=== PATIENT | female | born 1980 | race Caucasian/White ===

== ENCOUNTER → 2020-01-04 09:04 | Outpatient (BNVA) | payer BC, MEDICAID, SELFPAY | PROVIDERS: Family Provider Nurse Practitioner Family; PCP Family Medicine; Visit Provider Family Medicine | DX: E55.9 Vitamin D deficiency, unspecified (principal); I10 Essential (primary) hypertension; E03.9 Hypothyroidism, unspecified; J45.909 Unspecified asthma, uncomplicated; F32.9 Major depressive disorder, single episode, unspecified; F41.9 Anxiety disorder, unspecified; M43.06 Spondylolysis, lumbar region; G89.29 Other chronic pain; M25.551 Pain in right hip; Z79.899 Other long term (current) drug therapy | CPT/HCPCS: 80053; 80061; 82044; 82306; 84443; 85025 ==

== ENCOUNTER 2020-01-06 16:10 | Outpatient (CLI) | payer BC, MEDICAID, SELFPAY ==
--- NOTE | 2020-01-06 16:15 | XR_ITS ---
WS: [id number] HIP WITH PELVIS RIGHT TECHNIQUE: 3 views of the right hip with pelvis CLINICAL INFORMATION: chronic right hip pain COMPARISON: None. FINDINGS: Right hip is normal in appearance. No acute fractures. Normal visualized right pubic rami. XR/XR hip RT 2-3V wo/w pel* [id number] IMPRESSION: Normal right hip
== END 2020-01-06 16:11 | disposition home or self-care (01) ==
LOC: RADWPI 16:14
PROVIDERS: Family Provider Family Medicine; PCP Family Medicine; Visit Provider Family Medicine
DX: M25.551 Pain in right hip (principal); G89.29 Other chronic pain
CPT/HCPCS: 73502

== ENCOUNTER → 2020-01-10 13:39 | Outpatient (BNVA) | payer BC, MEDICAID, SELFPAY | PROVIDERS: Family Provider Family Medicine; PCP Family Medicine; Visit Provider Nurse Practitioner Family | DX: J01.40 Acute pansinusitis, unspecified (principal) | CPT/HCPCS: 87071; 87880 ==

== ENCOUNTER 2020-01-30 09:41 | Outpatient (RCR) | payer BC, MEDICAID, SELFPAY | END 2020-02-27 23:59 | disposition home or self-care (01) | LOC: SPT 09:41 | PROVIDERS: PCP Family Medicine; Referring Provider Family Medicine; Visit Provider Family Medicine | DX: G89.29 Other chronic pain (principal); M25.551 Pain in right hip | CPT/HCPCS: 97110; 97112; 97161; 97530 ==

== ENCOUNTER 2020-02-06 15:46 | Outpatient (CLI) | payer BC, MEDICAID, SELFPAY ==
--- NOTE | 2020-02-06 15:57 | XR_ITS ---
WS: [id number] LUMBAR SPINE: 3 VIEWS TECHNIQUE: AP, lateral and L5-S1 spot. HISTORY: chronic low back pain COMPARISON: 08/03/2013 L5 anterolisthesis by 1.5 cm has progressed since 2013. Severe disc space narrowing with facet joint arthritis. Anterior L5 vertebral body extends inferior to the superior endplate of S1. Bilateral pars defects. The remaining disc spaces are normal. SI joints are symmetric bilaterally. No soft tissue abnormalities. XR/XR lumbar spine 2-3V* [id number] IMPRESSION: Grade 2 spondylolisthesis of L5 and bilateral pars defects. Severe degenerative disc disease at L5-S1 with progression since 08/03/2013.
== END 2020-02-06 15:47 | disposition home or self-care (01) ==
LOC: RADWPI 15:49
PROVIDERS: PCP Family Medicine; Visit Provider Family Medicine
DX: M54.5 Low back pain (principal); G89.29 Other chronic pain; M43.16 Spondylolisthesis, lumbar region; M51.37 Other intervertebral disc degeneration, lumbosacral region
CPT/HCPCS: 72100

== ENCOUNTER 2020-02-14 11:28 | Outpatient (CLI) | payer BC, MEDICAID, SELFPAY ==
--- NOTE | 2020-02-14 11:00 | MR_ITS ---
WS: [id number] MRI LUMBAR SPINE NONCONTRAST HISTORY: M43.06 Spondylolysis, lumbar region COMPARISON: 04/21/2017 TECHNIQUE: Sagittal and axial multisequence imaging is submitted. Grade 2 spondylolisthesis of L5 with severe disc space narrowing at L5-S1. Anterolisthesis is 11 mm w ith mild progression since the prior study. Severe degenerative disc space narrowing with sclerosis a t the L5-S1 disc level. Otherwise the alignment is normal. No fractures. Remaining disc spaces are well preserved. Conus terminates normally at L1-2 disc level. L1-L2: Normal. L2-L3: Normal. L3-L4: Small amount of fluid in the facet joints with no stenosis. L4-L5: Small amount of fluid in the facet joints and mild facet and ligamentum flavum hypertrophy. No significant stenosis. L5-S1: Unroofing of the L5-S1 disc due to the anterolisthesis of L5. Annular disc bulging and facet a rthritis. There is mild encroachment upon the ventral thecal sac. Additional facet joint arthritis an d ligamentum flavum hypertrophy. Severe bilateral foraminal stenosis and mild central and subarticula r recess stenosis. Mild progression of degenerative changes at L5-S1. MR/MR lumbar spine wo con* [id number] IMPRESSION: 1. Grade 2 spondylolisthesis of L5 with spondylolysis. Moderate progression of degenerative changes at L5-S1 and anterolisthesis since 2017. 2. Severe bilateral foraminal stenosis at L5-S1 with mild central and subartic ular recess stenosis.
== END 2020-02-14 11:29 | disposition home or self-care (01) ==
LOC: RADSHAW 11:31
PROVIDERS: PCP Family Medicine; Visit Provider Family Medicine
DX: M43.06 Spondylolysis, lumbar region (principal); M48.07 Spinal stenosis, lumbosacral region
CPT/HCPCS: 72148

== ENCOUNTER → 2020-02-22 16:11 | Outpatient (BNVA) | payer BC, MEDICAID, SELFPAY | PROVIDERS: PCP Family Medicine; Visit Provider Internal Medicine | DX: E11.9 Type 2 diabetes mellitus without complications (principal); K52.9 Noninfective gastroenteritis and colitis, unspecified | CPT/HCPCS: 80053; 82607; 82746; 82784; 83516; 83550; 84443; 85025 ==

== ENCOUNTER 2020-02-28 06:00 | Outpatient (RCR) | payer BC, MEDICAID, SELFPAY | END 2020-03-28 23:59 | disposition home or self-care (01) | LOC: SPT 06:00 | PROVIDERS: PCP Family Medicine; Referring Provider Family Medicine; Visit Provider Family Medicine | DX: M25.551 Pain in right hip (principal); G89.29 Other chronic pain | CPT/HCPCS: 97110 ==

== ENCOUNTER → 2020-03-09 11:53 | Outpatient (BNVA) | payer BC, MEDICAID, SELFPAY | PROVIDERS: PCP Family Medicine; Visit Provider Internal Medicine | DX: Z11.59 Encounter for screening for other viral diseases (principal) | CPT/HCPCS: 87635 ==

== ENCOUNTER 2020-03-12 08:08 | Day surgery (SDC) | payer BC, MEDICAID, SELFPAY ==
[2020-03-08 11:49] VITALS: BMI 34.2
[2020-03-12 08:20] VITALS: BP 101/81; PULSE 93; RESP 18; TEMP 36.1; O2SAT 98
[2020-03-12] MEDS: sodium chloride 0.9% 1,000 ML 30 ML IV (08:46)
--- NOTE | 2020-03-12 09:13 | ANES.PREANE2 ---
Pre-Anesthetic Assessment Pre-Anesthetic Assessment: Height/Weight: Height 1.6 m Weight 87.543 kg Temp Pulse Resp BP Pulse Ox 96.9 F L 93 18 101/81 98 03/12/20 08:20 03/12/20 08:20 03/12/20 08:20 03/12/20 08:20 03/12/20 08:20 Preop Diagnosis: abd pain Proposed Procedure: Operation Date: 03/12/20 09:00 Proposed Procedures p EGD/colon [id number] K52.9(Not Applicable) - Paul Montalvo MD s Colonoscopy(Not Applicable) - Paul Montalvo MD Familial anesthetic complications: none Was Beta Rick taken within 24 hours: N/A Last intake: Intake Last Liquid Date 03/11/20 Last Liquid Time 19:30 Last Solid Date 03/10/20 Last Solid Time 18:00 Last Intake: 19:30 Social: Social History: Tobacco (vap) Exam: Pre-Anes Outpt Exam: alert, oriented x 3, clear to auscultation bilaterally and regular rate & rhythm Airway: Submandibular: WNL Cervical ROM: WNL MP: 1 Dentition: Full Pulmonary: Pulmonary: Asthma CV/HEM: CV/HEM: DVT (2006 RLE) and HTN : : None reported Hepatic: Hepatic: None reported GI: GI: GERD Metabolic: Metabolic: Thyroid Musc/skel: Musc/skel: Lower Back Pain Neuropsych: Neuropsych: Anxiety, Depression and Syncope (last week. ABD pain causes syncope) Anesthetic Plan: ASA status: 2 Anesthesia: MAC Risk of > 500 ml blood loss (7ml/kg in children): No Meds/Allergies Current Medications: Current Medications Generic Name Dose Route Start Last Admin Trade Name Freq PRN Reason Stop Dose Admin Sodium Chloride 1,000 mls @ 30 ml s/hr 03/12/20 08:30 03/12/20 08:46 Sodium Chloride 0.9% IV 03/13/20 08:29 30 mls/hr .Q24H NAJMA Administration PFSH Anesthesia PFSH: Medical History Anxiety and depression On and off since her mid 20s. Currently on medication managed by PMD. Asthma Diagnosed as a child-symptoms are controlled with as needed inhaler use. Follows with her PMD Diet-controlled diabetes mellitus Diagnosed in 2013 and was on metformin in the past. Currently diet controlled Dyslipidemia On simvastatin managed by PMD Essential hypertension Diagnosed in 2013 and is controlled on medications managed by PMD Fibromyalgia GERD (gastroesophageal reflux disease) Hypothyroidism Since her 30s well-controlled with medication. Follows up with PMD IBS (irritable bowel syndrome) Has had symptoms on and off since her 20s and is currently on medication managed by Dr. Montalvo Lumbar spondylolysis Chronic back pain and nerve problems and takes gabapentin and pain medicine for this. No pertinent past medical history Denies DVT/PE PMD: Dr. Duffy Seizures Currently on Keppra for this. Surgical History H/O section 1998, 2004 H/O: hysterectomy TLH, bilateral salpingectomy, and suburetheral sling by Dr. Souza at [facility] [place] on 12/23/2018. Pathology showed benign cervix endometrium and myometrium with fibroid and adenomyosis. Bilateral tubes were benign History of bladder surgery -----> on 05/31/2008 patient underwent cystoscopy with bladder biopsy and hydrodistention of the bladder to identify the cause of pain and chronic UTI symptomatology. Bladder biopsy was negative. States that she had some sort of bladder surgery in 2007 done vaginally. Patient does not remember any details of surgery--- these records have been requested and obtained and details as noted above. History of cholecystectomy 1998--laparoscopic procedure History of nasal surgery 2007--cyst removed from nose S/P tubal ligation Performed in 2004 at time of second Status post sclerotherapy of varicose veins 2005--had procedure done to repair varicose veins in her left leg Family History (Updated 02/28/20 @ 09:23 by Stephanie Nichols RN) Father Hyperlipidemia Hypertension Heart disease Grandmother Hyperlipidemia paternal Hypertension paternal Stroke paternal Family/Other Hyperlipidemia paternal uncle Hypertension paternal uncle Hemophilia paternal uncle Mother Thyroid condition Denies family history of Colon cancer Ovarian cancer Diabetes Breast cancer Anesthesia complication Uterine cancer Social History (Updated 02/22/20 @ 15:17 by DEAN Delgado) Smoking and tobacco status: never smoked Alcohol intake: never History of recent travel: No Data Anesthesia Cardiac Studies: No Data to Display
--- NOTE | 2020-03-12 09:24 | W.PM.OPSUD ---
Surgery/Procedure H&P Update DATE OF PROCEDURE: March 12, 2020 DATE H&P PERFORMED: 02/22/20 PREOP DIAGNOSIS: abd pain PLANNED PROCEDURE: Operation Date: 03/12/20 09:00 Proposed Procedures p EGD/colon [id number] K52.9(Not Applicable) - Paul Montalvo MD s Colonoscopy(Not Applicable) - Paul Montalvo MD
[2020-03-12 09:52] VITALS: BP 104/76; PULSE 79; RESP 16; TEMP 36.1; O2SAT 97
--- NOTE | 2020-03-12 09:57 | ANE.PACU2 ---
Inpatient post-anesthesia follow up: Airway intact: Yes Vital signs: Temperature 96.9 F Pulse Rate 93 Respiratory Rate 18 Blood Pressure 101/81 Pulse Oximetry 98 Oxygen Delivery Me thod Room Air Oxygen Flow Rate Fraction of Inspir ed Oxygen Hydration adequate: Yes Nausea and vomiting: No Pain level: 1 Mental status: Baseline
[2020-03-12 10:18] VITALS: BP 111/81; PULSE 85; RESP 16; O2SAT 96
== END 2020-03-12 10:30 | disposition home or self-care (01) ==
PROVIDERS: PCP Family Medicine; Visit Provider Internal Medicine
PROC: 0DJ08ZZ Inspection of Upper Intestinal Tract, Via Natural or Artificial Opening Endoscopic (ICD-10-PCS; CPT 43235; principal; 2020-03-12 09:00)
PROC: 0DJD8ZZ Inspection of Lower Intestinal Tract, Via Natural or Artificial Opening Endoscopic (ICD-10-PCS; CPT 45378; 2020-03-12 09:00)
DX: K52.9 Noninfective gastroenteritis and colitis, unspecified (principal); K29.50 Unspecified chronic gastritis without bleeding; K44.9 Diaphragmatic hernia without obstruction or gangrene; J45.909 Unspecified asthma, uncomplicated; I10 Essential (primary) hypertension; K21.9 Gastro-esophageal reflux disease without esophagitis; E78.5 Hyperlipidemia, unspecified; E03.9 Hypothyroidism, unspecified; F17.210 Nicotine dependence, cigarettes, uncomplicated
CPT/HCPCS: 12345; 43235; 45378; 82274; 83630; 87493; 87506; 88305; J2704; J7030

== ENCOUNTER → 2020-04-04 07:53 | Outpatient (BNVA) | payer BC, MEDICAID, SELFPAY | PROVIDERS: PCP Family Medicine; Referring Provider Nurse Practitioner Family; Visit Provider Specialist | DX: F32.9 Major depressive disorder, single episode, unspecified (principal); F41.9 Anxiety disorder, unspecified; G40.909 Epilepsy, unspecified, not intractable, without status epilepticus; G43.711 Chronic migraine without aura, intractable, with status migrainosus; M43.06 Spondylolysis, lumbar region | CPT/HCPCS: 99204 ==

== ENCOUNTER → 2020-04-26 13:33 | Outpatient (BNVA) | payer BC, MEDICAID, SELFPAY | PROVIDERS: PCP Family Medicine; Referring Provider Family Medicine; Visit Provider Anesthesiology Pain Medicine | DX: R10.9 Unspecified abdominal pain (principal); M54.9 Dorsalgia, unspecified; M47.816 Spondylosis without myelopathy or radiculopathy, lumbar region; M51.16 Intervertebral disc disorders with radiculopathy, lumbar region; M43.06 Spondylolysis, lumbar region; F17.290 Nicotine dependence, other tobacco product, uncomplicated | CPT/HCPCS: 99205 ==

== ENCOUNTER → 2020-05-01 14:53 | Outpatient (BNVA) | payer BC, MEDICAID, SELFPAY | PROVIDERS: PCP Family Medicine; Visit Provider Anesthesiology Pain Medicine | DX: M51.16 Intervertebral disc disorders with radiculopathy, lumbar region (principal); M54.9 Dorsalgia, unspecified; F17.290 Nicotine dependence, other tobacco product, uncomplicated | CPT/HCPCS: 62323; 77003; J1040; J3490 ==

== ENCOUNTER → 2020-05-15 14:48 | Outpatient (BNVA) | payer BC, MEDICAID, SELFPAY | PROVIDERS: PCP Family Medicine; Visit Provider Anesthesiology Pain Medicine | DX: M51.16 Intervertebral disc disorders with radiculopathy, lumbar region (principal); M54.9 Dorsalgia, unspecified | CPT/HCPCS: 62323; J1040; J3490 ==

== ENCOUNTER → 2020-06-04 15:06 | Outpatient (BNVA) | payer BC, MEDICAID, SELFPAY | PROVIDERS: PCP Family Medicine; Visit Provider Family Medicine | DX: R30.0 Dysuria (principal) | CPT/HCPCS: 81000; 87086 ==

== ENCOUNTER → 2020-06-20 09:58 | Outpatient (BNVA) | payer BC, MEDICAID, SELFPAY | PROVIDERS: PCP Family Medicine; Visit Provider Specialist | DX: R56.9 Unspecified convulsions (principal); F17.200 Nicotine dependence, unspecified, uncomplicated | CPT/HCPCS: 95816 ==

== ENCOUNTER 2020-07-16 13:38 | Outpatient (CLI) | payer BC, MEDICAID, SELFPAY ==
--- NOTE | 2020-07-16 14:00 | MM_ITS ---
WS: [id number] BILATERAL SCREENING DIGITAL MAMMOGRAM WITH CAD HISTORY: screening COMPARISON: 02/18/2019 Bilateral CC and MLO views submitted. Computer aided detection analyzed. Breast composition: There are scattered areas of fibroglandular density. No suspicious masses, microc alcifications or architectural distortion. Benign calcifications and asymmetries. No suspicious mass. MM/[place] [id number] IMPRESSION: BI-RADS: 2-Benign FOLLOW UP: 1 Year Follow-up
== END 2020-07-16 13:39 | disposition home or self-care (01) ==
LOC: RADSHAW 13:43
PROVIDERS: PCP Family Medicine; Visit Provider Obstetrics & Gynecology
DX: Z12.31 Encounter for screening mammogram for malignant neoplasm of breast (principal)
CPT/HCPCS: 77067

== ENCOUNTER → 2020-07-23 14:55 | Outpatient (BNVA) | payer BC, MEDICAID, SELFPAY | PROVIDERS: PCP Family Medicine; Visit Provider Specialist | DX: G43.711 Chronic migraine without aura, intractable, with status migrainosus (principal); G40.909 Epilepsy, unspecified, not intractable, without status epilepticus; F41.9 Anxiety disorder, unspecified; F32.9 Major depressive disorder, single episode, unspecified; F17.290 Nicotine dependence, other tobacco product, uncomplicated | CPT/HCPCS: 99214 ==

== ENCOUNTER → 2020-09-11 08:00 | Outpatient (BNVA) | payer BC, MEDICAID, SELFPAY | PROVIDERS: PCP Family Medicine; Visit Provider Specialist | DX: R20.0 Anesthesia of skin (principal); R56.9 Unspecified convulsions; R20.2 Paresthesia of skin; M79.641 Pain in right hand; M79.642 Pain in left hand; F17.290 Nicotine dependence, other tobacco product, uncomplicated | CPT/HCPCS: 36415; 95816; 95910 ==

== ENCOUNTER → 2020-11-16 09:00 | Outpatient (BNVA) | payer BC, MEDICAID, SELFPAY | PROVIDERS: PCP Family Medicine; Visit Provider Anesthesiology Pain Medicine | DX: M54.9 Dorsalgia, unspecified (principal); M47.816 Spondylosis without myelopathy or radiculopathy, lumbar region; M51.16 Intervertebral disc disorders with radiculopathy, lumbar region; M43.06 Spondylolysis, lumbar region; M25.551 Pain in right hip; Z79.891 Long term (current) use of opiate analgesic | CPT/HCPCS: 99214 ==

== ENCOUNTER → 2020-11-22 15:53 | Outpatient (BNVA) | payer BC, MEDICAID, SELFPAY | PROVIDERS: PCP Family Medicine; Visit Provider Internal Medicine | DX: K52.9 Noninfective gastroenteritis and colitis, unspecified (principal); K58.9 Irritable bowel syndrome, unspecified | CPT/HCPCS: 86003 ==

== ENCOUNTER 2020-12-03 20:00 | Outpatient (CLI) | payer BC, MEDICAID, SELFPAY | END 2020-12-03 20:01 | disposition home or self-care (01) | LOC: SLEEP 12-04 08:07 | PROVIDERS: PCP Family Medicine; Visit Provider Family Medicine | DX: G47.10 Hypersomnia, unspecified (principal); R06.83 Snoring; R53.83 Other fatigue; G89.29 Other chronic pain; M54.16 Radiculopathy, lumbar region; M54.9 Dorsalgia, unspecified; F17.290 Nicotine dependence, other tobacco product, uncomplicated; Z79.891 Long term (current) use of opiate analgesic | CPT/HCPCS: 62323; 95810; J1100; J3490 ==

== ENCOUNTER → 2020-12-14 10:46 | Outpatient (BNVA) | payer BC, MEDICAID, SELFPAY | PROVIDERS: PCP Family Medicine; Visit Provider Anesthesiology Pain Medicine | DX: M51.16 Intervertebral disc disorders with radiculopathy, lumbar region (principal); M47.816 Spondylosis without myelopathy or radiculopathy, lumbar region; M43.06 Spondylolysis, lumbar region; M54.9 Dorsalgia, unspecified; M25.551 Pain in right hip; F17.290 Nicotine dependence, other tobacco product, uncomplicated | CPT/HCPCS: 99213 ==

== ENCOUNTER → 2021-05-16 13:58 | Outpatient (BNVA) | payer MEDICAID, SELFPAY | PROVIDERS: PCP Family Medicine; Visit Provider Anesthesiology Pain Medicine | DX: M47.816 Spondylosis without myelopathy or radiculopathy, lumbar region (principal); M51.16 Intervertebral disc disorders with radiculopathy, lumbar region; M43.16 Spondylolisthesis, lumbar region; M25.551 Pain in right hip; Z79.891 Long term (current) use of opiate analgesic | CPT/HCPCS: 99214 ==

== ENCOUNTER → 2021-05-22 10:38 | Outpatient (BNVA) | payer MEDICAID, SELFPAY | PROVIDERS: PCP Family Medicine; Visit Provider Family Medicine | DX: I10 Essential (primary) hypertension (principal); E03.9 Hypothyroidism, unspecified | CPT/HCPCS: 80053; 80061; 82043; 84443; 85025 ==

== ENCOUNTER → 2021-05-29 14:48 | Outpatient (BNVA) | payer MEDICAID, SELFPAY | PROVIDERS: PCP Family Medicine; Visit Provider Anesthesiology Pain Medicine | DX: G89.29 Other chronic pain (principal); M51.16 Intervertebral disc disorders with radiculopathy, lumbar region; M47.816 Spondylosis without myelopathy or radiculopathy, lumbar region; F17.290 Nicotine dependence, other tobacco product, uncomplicated; Z79.891 Long term (current) use of opiate analgesic | CPT/HCPCS: 62323; J1040; J3490 ==

== ENCOUNTER → 2021-06-12 09:57 | Outpatient (BNVA) | payer MEDICAID, SELFPAY | PROVIDERS: PCP Family Medicine; Visit Provider Anesthesiology Pain Medicine | DX: M43.16 Spondylolisthesis, lumbar region (principal); M47.816 Spondylosis without myelopathy or radiculopathy, lumbar region; M51.16 Intervertebral disc disorders with radiculopathy, lumbar region; M25.551 Pain in right hip; Z79.891 Long term (current) use of opiate analgesic | CPT/HCPCS: 99214 ==

== ENCOUNTER → 2021-07-02 14:43 | Outpatient (BNVA) | payer MEDICAID, SELFPAY | PROVIDERS: PCP Family Medicine; Visit Provider Anesthesiology Pain Medicine | DX: M51.16 Intervertebral disc disorders with radiculopathy, lumbar region (principal); Z79.891 Long term (current) use of opiate analgesic | CPT/HCPCS: 62323; J1040; J3490 ==

== ENCOUNTER → 2022-01-28 15:47 | Outpatient (BNVA) | payer MEDICAID, SELFPAY | PROVIDERS: PCP Family Medicine; Visit Provider Family Medicine | DX: I10 Essential (primary) hypertension (principal); E78.5 Hyperlipidemia, unspecified; E03.9 Hypothyroidism, unspecified | CPT/HCPCS: 80053; 80061; 84443; 85025 ==

== ENCOUNTER → 2022-03-07 14:36 | Outpatient (BNVA) | payer MEDICAID, SELFPAY | PROVIDERS: PCP Family Medicine; Visit Provider Emergency Medicine | DX: Z20.822 Contact with and (suspected) exposure to COVID-19 (principal); R51.9 Headache, unspecified | CPT/HCPCS: 87426 ==

== ENCOUNTER 2022-03-24 11:50 | Emergency (ER) | payer MEDICAID, SELFPAY ==
[2022-03-24 11:50] VITALS: BP 122/87; PULSE 84; RESP 16; TEMP 36.6; O2SAT 97; BMI 32.5
--- NOTE | 2022-03-24 12:05 | XR_ITS ---
WS: [id number] Exam: XR hand LT min 3V* [id number] Date/Time of Exam: 03/24/2022 12:06 PM Reason For Exam: pain in hand after crushing injury No obvious fracture or dislocation. No soft tissue foreign bodies are seen. Recommendations: If the patient fails to respond to conservative management further workup with CT mi ght be considered. XR/XR hand LT min 3V* [id number] IMPRESSION: 1. No obvious fracture or dislocation noted.
--- NOTE | 2022-03-24 12:16 | ED_ITS ---
HPI - Extremity Problem General: Chief complaint: Extremity Injury, Upper Stated complaint: Left hand pain Time Seen by Provider: 03/24/22 12:05 History of Present Illness: Patient is a 41-year-old female comes to the ED with left hand injury. Patient states approximately 4 days ago she got her left hand crushed between a metal door frame. She has had 9 out of 10 pain in left hand along with swelling and ecchymosis. Limited range of motion in fingers due to pain. Most of her pain is located at the metacarpal region of her third and fourth digit. Associated symptoms: Deny chest pain, fever(s) or rash Review of Systems Const: Denies: fever(s), chills or fatigue Eyes: Denies: change in vision or eye discomfort ENMT: Denies: throat pain, odynophagia, nasal discharge or nasal congestion Card: Denies: chest pain, palpitations, edema, swelling of feet/ankles, dyspnea on exertion or orthopnea Resp: Denies: dyspnea, productive cough or non-productive cough GI: Denies: abdominal pain, nausea, vomiting, diarrhea, constipation or hematochezia : Denies: flank pain, dysuria or hematuria Musc: Reports: extremity pain (left hand pain), extremity swelling (Left hand swelling and ecchymosis) and limited range of motion (in left fingers due to pain); Denies: neck pain or back pain Skin/Breast: Denies: rash or new lesions Neuro: Denies: headache(s), numbness in extremities or weakness in extremities [facility] ED PFS: Medical History (Updated 03/24/22 @ 12:38 by JAHAIRA Villavicencio) Anxiety and depression On and off since her mid 20s. Currently on medication managed by PMD. Asthma Diagnosed as a child-symptoms are controlled with as needed inhaler use. Follows with her PMD Diet-controlled diabetes mellitus Diagnosed in 2013 and was on metformin in the past. Currently diet contro lled Dyslipidemia On simvastatin managed by PMD Essential hypertension Diagnosed in 2013 and is controlled on medications managed by PMD Fibromyalgia GERD (gastroesophageal reflux disease) Hypothyroidism Since her 30s well-controlled with medication. Follows up with PMD IBS (irritable bowel syndrome) Has had symptoms on and off since her 20s and is currently on medication managed by Dr. Montalvo Lumbar spondylolysis Chronic back pain and nerve problems and takes gabapentin and pain medicine for this. No pertinent past medical history Denies DVT/PE PMD: Dr. Duffy Seizures Currently on [facility] for this. Surgical History H/O section 1998, 2004 H/O: hysterectomy TLH, bilateral salpingectomy, and suburetheral sling by Dr. Souza at [facility] [place] on 12/23/2018. Pathology showed benign cervix endometrium and myometrium with fibroid and adenomyosis. Bilateral tubes were benign History of bladder surgery -----> on 05/31/2008 patient underwent cystoscopy with bladder biopsy and hydrodistention of the bladder to identify the cause of pain and chronic UTI symptomatology. Bladder biopsy was negative. States that she had some sort of bladder surgery in 2007 done vaginally. Patient does not remember any details of surgery--- these records have been requested and obtained and details as noted above. History of cholecystectomy 1998--laparoscopic procedure History of nasal surgery 2007--cyst removed from nose S/P tubal ligation Performed in 2004 at time of second Status post sclerotherapy of varicose veins 2005--had procedure done to repair varicose veins in her left leg Family History Father Hyperlipidemia Hypertension Heart disease Grandmother Hyperlipidemia paternal Hypertension paternal Stroke paternal Family/Other Hyperlipidemia paternal uncle Hypertension paternal uncle Hemophilia paternal uncle Mother Thyroid condition Denies family history of Colon cancer Ovarian cancer Diabetes Breast cancer Anesthesia complication Uterine cancer Social History Smoking and tobacco status: current every day smoker (uses a vape pen) e- cigarettes E-Cigarette Details: vaporizer device and with nicotine Alcohol intake: never History of recent travel: No Physical Exam Const: COMMON NORMALS: no acute distress, patient oriented x3 and alert GENERAL APPEARANCE: cooperative HENMT: COMMON NORMALS: normocephalic HEAD & SCALP: normocephalic MOUTH: Normal oral and palatal mucosa present THROAT: posterior oropharynx normal and uvula midline Neck/C-Spine: COMMON NORMALS: supple GENERAL: Yes normal visual inspection Resp: COMMON NORMALS: normal respiratory effort, No retractions, No use of accessory muscles and clear to auscultation bilaterally AUSCULTATION: clear to auscultation bilaterally Cardio: COMMON NORMALS: regular rate, regular rhythm, S1 normal heart sound present, S2 normal heart sound present, No gallops present (Cardio), No clicks present (Cardio), No murmurs present (Cardio) and Peripheral pulses 2+ throughout RATE: regular rate RHYTHM: regular rhythm HEART SOUNDS: S1 normal heart sound present and S2 normal heart sound present PERIPHERAL PULSES: Peripheral pulses 2+ throughout GI: COMMON NORMALS: Normal to inspection, nondistended, normoactive bowel sounds present, Soft to palpation, non-tender and no masses PALPATION: Yes Soft to palpation : COMMON NORMALS: Yes no CVA tenderness BLADDER/KIDNEY EXAM: Yes no CVA tenderness Back/Pelvis: COMMON NORMALS: no CVA tenderness Extremity: NARRATIVE EXTREMITY EXAM: Left hand?swelling and ecchymosis noted. Limited range of motion in fingers due to pain. Tenderness over third and fourth carpal. Neurovascular tact. Neuro: COMMON NORMALS: patient oriented x3 SENSORIUM/ORIENTATION: Yes alert GAIT: Yes Normal gait present Skin: GENERAL SKIN EXAM: dry skin Course Vital Signs: Vital signs: Vital Signs Temperature 97.9 F 03/24/22 11:50 Pulse Rate 84 03/24/22 11:50 Respiratory Rate 16 03/24/22 11:50 Blood Pressure 122/87 03/24/22 11:50 Pulse Oximetry 97 03/24/22 11:50 Oxygen Delivery Me thod 03/24/22 11:50 MDM - Extremity (Nontraumatic) Medical Decision Making Patient is a 41-year-old female comes to the ED with left hand injury. Patient states approximately 4 days ago she got her left hand crushed between a metal door frame. Patient has ecchymosis and swelling of the left hand. Neurovascular tact. X-ray of left hand shows no acute fractures or findings. She is diagnosed with a contusion of left hand and discharged home with prescription for ibuprofen 800 mg. Follow-up with PCP in the next week for reevaluation. Return to ED precautions given. Patient understood and agreed with plan. Lab Data Radiology Impressions Hand X-Ray 03/24/22 12:05 IMPRESSION: 1. No obvious fracture or dislocation noted. Discharge Plan Discharge Patient Disposition: Home Clinical Impression: Contusion of hand, left Qualifiers: Encounter type: initial encounter Qualified Code(s): S60.222A - Contusion of left hand, initial encounter Condition: Stable Prescriptions: New ibuprofen 800 mg tablet 800 mg PO Q8H PRN (Reason: pain) Qty: 20 0RF No Action CBD OIL PO Rx Instructions: 150MG/CBD 1000MG/THC baclofen 10 mg tablet 20 mg PO TID Qty: 270 2RF Mucinex 1,200 mg tablet extended release 12hr 1,200 mg PO BID Qty: 20 0RF duloxetine 60 mg capsule, delayed rel sprinkle 60 mg PO DAILY Qty: 90 1RF Paxlovid (EUA) 150-100 mg tablet See Rx Instructions PO PER PKG DIR Qty: 30 0RF Rx Instructions: PO PER PKG DIR ondansetron 8 mg tablet,disintegrating 8 mg PO Q8H PRN (Reason: nausea and vomiting) 5 Days Qty: 15 0RF albuterol sulfate 2.5 mg /3 mL (0.083 %) solution for nebulization 2.5 mg inhalation Q4H PRN (Reason: shortness of breath or wheezing) Qty: 90 2RF Ajovy Autoinjector 225 mg/1.5 mL auto-injector See Rx Instructions .ROUTE .COMPLEX Qty: 2 0RF Dose Instruction: INJECT 225MCG SUBCUTANEOUSLY ONCE A MONTH Rx Instructions: INJECT 225MCG SUBCUTANEOUSLY ONCE A MONTH furosemide 20 mg tablet 20 - 40 mg PO DAILY Qty: 180 0RF alprazolam 0.5 mg tablet 0.5 mg PO BID PRN (Reason: anxiety) Qty: 45 2RF Rx Instructions: Must last 30 days buspirone 10 mg tablet See Rx Instructions .ROUTE .COMPLEX Qty: 90 2RF Dose Instruction: TAKE 1 TABLET BY MOUTH THREE TIMES DAILY Rx Instructions: TAKE 1 TABLET BY MOUTH THREE TIMES DAILY gabapentin 600 mg tablet See Rx Instructions .ROUTE .COMPLEX Qty: 90 1RF Dose Instruction: TAKE 1 TABLET BY MOUTH THREE TIMES DAILY Rx Instructions: TAKE 1 TABLET BY MOUTH THREE TIMES DAILY hydrocodone-acetaminophen 5-325 mg tablet 1 tab PO BID PRN (Reason: pain) 7 Days Qty: 14 0RF levetiracetam 500 mg tablet See Rx Instructions .ROUTE .COMPLEX Qty: 270 1RF Dose Instruction: TAKE 1 TABLET BY MOUTH EVERY MORNING AND TWO EVERY DAY AT BEDTIME Rx Instructions: TAKE 1 TABLET BY MOUTH EVERY MORNING AND TWO EVERY DAY AT BEDTIME pantoprazole 40 mg tablet,delayed release (DR/EC) See Rx Instructions .ROUTE .COMPLEX Qty: 90 1RF Dose Instruction: TAKE 1 TABLET BY MOUTH TWICE DAILY Rx Instructions: TAKE 1 TABLET BY MOUTH TWICE DAILY trazodone 100 mg tablet See Rx Instructions .ROUTE .COMPLEX Qty: 90 1RF Dose Instruction: TAKE 1 TABLET BY MOUTH AT BEDTIME Rx Instructions: TAKE 1 TABLET BY MOUTH AT BEDTIME levothyroxine 100 mcg tablet See Rx Instructions .ROUTE .COMPLEX Qty: 90 0RF Dose Instruction: TAKE 1 TABLET BY MOUTH EVERY MORNING FOR 90 DAYS Rx Instructions: TAKE 1 TABLET BY MOUTH EVERY MORNING FOR 90 DAYS hydrochlorothiazide 12.5 mg tablet See Rx Instructions .ROUTE .COMPLEX Qty: 30 5RF Dose Instruction: TAKE 1 TABLET BY MOUTH EVERY DAY Rx Instructions: TAKE 1 TABLET BY MOUTH EVERY DAY valacyclovir 500 mg tablet See Rx Instructions .ROUTE .COMPLEX Qty: 30 0RF Dose Instruction: TAKE 1 TABLET BY MOUTH EVERY DAY NEEDED FOR outbreak Rx Instructions: TAKE 1 TABLET BY MOUTH EVERY DAY NEEDED FOR outbreak albuterol sulfate [ProAir HFA] 90 mcg/actuation HFA aerosol inhaler See Rx Instructions .ROUTE .COMPLEX Qty: 8.5 5RF Dose Instruction: inhale TWO puffs EVERY 4 HOURS NEEDED FOR SHORTNESS OF BREATH or wheezing Rx Instructions: inhale TWO puffs EVERY 4 HOURS NEEDED FOR SHORTNESS OF BREATH or wheezing Discharge Orders: Discharge ED (Routine); Ordered 03/24/22 Ordered By: Ted Pryor Referrals: Stephanie Duffy DO [Primary Care Provider] - Discharge Diet: Regular Discharge Activity: Increase activity as tolerated Patient Instructions: Contusion in Adults (ED) Activity Restrictions/Additional Instructions: Follow-up with medical provider as directed in the next 5 to 7 days for reevaluation. Take medications as prescribed. Apply cold pack on hand multiple times a day for 10 to 15 minutes at a time and elevate hand as well to help with swelling. Return to the ER or your medical provider if condition worsens. Please read and understand discharge instructions. Thank you for choosing [facility] for your healthcare needs today. Please realize this is an emergency room and that we are providing you with a medical screening exam and this may not be complete and all inclusive of all the testing and or work up that you may need to determine your ailment or severity of your illness. It is very important that you follow up as instructed or that you return to the Emergency Department should you have concerns or if your condition changes or worsens in any way. Coding Level of Care Code ED [employer] Strategist for Armen Flor Exam Comprehensive
[2022-03-24] MEDS: HYDROcodone-acetaminophen 7.5-325 mg Tablet 1 TAB PO (12:26)
== END 2022-03-24 12:57 | disposition home or self-care (01) ==
PROVIDERS: Emergency Provider Physician Assistant; PCP Family Medicine
DX: S60.222A Contusion of left hand, initial encounter (principal); F17.290 Nicotine dependence, other tobacco product, uncomplicated; E78.5 Hyperlipidemia, unspecified; E11.9 Type 2 diabetes mellitus without complications; I10 Essential (primary) hypertension; W23.0XXA Caught, crushed, jammed, or pinched between moving objects, initial encounter
CPT/HCPCS: 73130; 99283

== ENCOUNTER → 2022-04-10 16:00 | Outpatient (BNVA) | payer MEDICAID, SELFPAY | PROVIDERS: PCP Family Medicine; Visit Provider Family Medicine | DX: N28.9 Disorder of kidney and ureter, unspecified (principal); E03.9 Hypothyroidism, unspecified | CPT/HCPCS: 80053; 84443 ==

== ENCOUNTER → 2022-08-01 14:36 | Outpatient (BNVA) | payer MEDICAID, SELFPAY | PROVIDERS: PCP Family Medicine; Visit Provider Family Medicine | DX: M51.16 Intervertebral disc disorders with radiculopathy, lumbar region (principal); M47.816 Spondylosis without myelopathy or radiculopathy, lumbar region; I12.9 Hypertensive chronic kidney disease with stage 1 through stage 4 chronic kidney disease, or unspecified chronic kidney disease; K52.9 Noninfective gastroenteritis and colitis, unspecified; E03.9 Hypothyroidism, unspecified; N18.30 Chronic kidney disease, stage 3 unspecified; F32.9 Major depressive disorder, single episode, unspecified | CPT/HCPCS: 80053; 84443; 86003; 86008 ==

== ENCOUNTER → 2022-08-12 15:03 | Outpatient (BNVA) | payer MEDICAID, SELFPAY | PROVIDERS: PCP Family Medicine; Referring Provider Family Medicine; Visit Provider Orthopaedic Surgery | DX: M43.17 Spondylolisthesis, lumbosacral region (principal) | CPT/HCPCS: 72110; 99204 ==

== ENCOUNTER → 2022-10-09 08:52 | Outpatient (BNVA) | payer MEDICAID, SELFPAY | PROVIDERS: PCP Family Medicine; Visit Provider Anesthesiology Pain Medicine | DX: M43.17 Spondylolisthesis, lumbosacral region (principal); M43.16 Spondylolisthesis, lumbar region; M47.816 Spondylosis without myelopathy or radiculopathy, lumbar region; M51.16 Intervertebral disc disorders with radiculopathy, lumbar region; M25.559 Pain in unspecified hip | CPT/HCPCS: 99213 ==

== ENCOUNTER → 2022-10-28 16:19 | Outpatient (BNVA) | payer MEDICAID, SELFPAY | PROVIDERS: PCP Family Medicine; Visit Provider Family Medicine | DX: Z13.6 Encounter for screening for cardiovascular disorders (principal); R60.0 Localized edema; N95.1 Menopausal and female climacteric states; E03.9 Hypothyroidism, unspecified; F32.9 Major depressive disorder, single episode, unspecified | CPT/HCPCS: 80053; 82670; 83001; 83002; 84443 ==

== ENCOUNTER → 2023-02-12 15:13 | Outpatient (BNVA) | payer MEDICAID, SELFPAY | PROVIDERS: PCP Family Medicine; Visit Provider Family Medicine | DX: R05.9 Cough, unspecified (principal); J06.9 Acute upper respiratory infection, unspecified | CPT/HCPCS: 87071; 87426; 87880 ==

== ENCOUNTER → 2023-08-14 12:04 | Outpatient (BNVA) | payer BC, MEDICAID, SELFPAY | PROVIDERS: PCP Family Medicine; Visit Provider Family Medicine | DX: I10 Essential (primary) hypertension (principal); E03.9 Hypothyroidism, unspecified | CPT/HCPCS: 80053; 80061; 82043; 84443; 85025 ==

== ENCOUNTER → 2024-02-09 13:53 | Outpatient (BNVA) | payer MEDICAID, SELFPAY | DX: I10 Essential (primary) hypertension (principal); E78.5 Hyperlipidemia, unspecified; E03.9 Hypothyroidism, unspecified | CPT/HCPCS: 80053; 80061; 84439; 84443 ==

== ENCOUNTER 2024-03-24 14:18 | Outpatient (CLI) | payer MEDICAID, SELFPAY ==
--- NOTE | 2024-03-24 14:20 | MM_ITS ---
WS: [id number] Bilateral screening 3D tomosynthesis digital mammogram, 03/24/2024 2:22 PM Clinical Data: screening Comparison: 07/16/2020, 02/18/2019. Findings: No spiculated masses or clustered calcifications are seen. There are no secondary signs of carcinoma . MM/MM scr BI tomosynthesis [id number] Impression: Negative bilateral mammogram unchanged. Recommend annual screening mammograms. BIRADS: 1 - Negative. FOLLOW UP: 1 Year Follow-up DENSITY: There are scattered areas of fibroglandular density. The CAD calibration checker was used
== END 2024-03-24 14:19 | disposition home or self-care (01) ==
LOC: MOBLMAM 14:20
DX: Z12.31 Encounter for screening mammogram for malignant neoplasm of breast (principal)
CPT/HCPCS: 77063; 77067; 80053; 80061; 84439; 84443

== ENCOUNTER → 2024-03-30 15:44 | Outpatient (BNVA) | payer MEDICAID, SELFPAY | DX: E03.9 Hypothyroidism, unspecified (principal); E66.9 Obesity, unspecified | CPT/HCPCS: 80053; 82951; 83036; 84443 ==

== ENCOUNTER → 2024-06-30 14:21 | Outpatient (BNVA) | payer MEDICAID, SELFPAY | DX: E03.9 Hypothyroidism, unspecified (principal); J02.9 Acute pharyngitis, unspecified | CPT/HCPCS: 84439; 84443; 87070; 87880 ==